=== PATIENT | male | born 2000 | race Caucasian/White ===

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

== ENCOUNTER 2018-05-15 18:00 | Emergency (ER) | payer MEDICAID ==
[~2018-05-15] VITALS: Ht 180.3 cm; Wt 118.2 kg
[2018-05-15 18:13] VITALS: Ht 180.3 cm; Wt 118.2 kg
[2018-05-15 19:05] VITALS: BP 151/79
[2018-05-15] MEDS ORDERED: BACTROBAN CREAM15 GM TOPICAL (19:23)
== END 2018-05-15 19:05 | disposition home or self-care (01) ==
LOC: D.ER 18:00
DX: S80.211A Abrasion, right knee, initial encounter (principal); S60.412A Abrasion of right middle finger, initial encounter; W18.30XA Fall on same level, unspecified, initial encounter; Y93.89 Activity, other specified; Y92.029 Unspecified place in mobile home as the place of occurrence of the external cause; K13.0 Diseases of lips; F17.200 Nicotine dependence, unspecified, uncomplicated

== ENCOUNTER 2020-11-29 12:04 | Emergency (ER) | payer OTHER ==
[~2020-11-29] VITALS: Ht 193 cm; Wt 136.8 kg
[~2020-11-29 12:04] MED LIST: BACTROBAN CREAM15 GM TOPICAL
[2020-11-29 12:11] VITALS: BP 163/90; Ht 193 cm; Wt 136.8 kg
[2020-11-29] MEDS ORDERED: BENADRYL 2% CRE30 GM TOPICAL (12:28)
== END 2020-11-29 12:34 | disposition home or self-care (01) ==
LOC: D.ER 12:04
DX: R20.8 Other disturbances of skin sensation (principal)

== ENCOUNTER 2020-12-24 23:49 | Emergency (ER) | payer OTHER ==
[2020-11-29 12:11] VITALS: BMI 36.7
[~2020-12-24 23:49] MED LIST changes: +BENADRYL 2% CRE30 GM TOPICAL
== END 2020-12-25 00:20 | disposition left against medical advice (07) ==
LOC: D.ER 23:49
DX: R41.82 Altered mental status, unspecified (principal); Z53.21 Procedure and treatment not carried out due to patient leaving prior to being seen by health care provider